=== PATIENT | male | born 1945 | race Caucasian/White ===

== ENCOUNTER 2017-01-17 11:35 | Observation (INO) | payer MEDICARE, OTHER ==
--- NOTE | ~2017-01-17 | CN ---
Consultation Report [facility] [address] [place]. [address] NAME: RENÉ OVALLES : 41 STATUS : ADM Isaías PAT#: [id number] AGE: 71 ADM/REG DATE : 01/17/17 MR#: [id number] REPORT SERV DATE: 01/18/17 DICTATED BY: ELEANOR MADDOX DATE: 01/18/17 REPORT STATUS : Draft TRANSCRIBED BY: MODL DATE: 01/18/17 GI CONSULTATION DATE OF CONSULTATION: 01/18/2017 REASON FOR CONSULTATION: Evaluation and management of melenic stools. HISTORY OF PRESENT ILLNESS: Mr. Ovalles is a pleasant 71-year-old male patient, who is known to Dr. Alvarez in the outpatient setting, who presented to [facility] on 01/17 with a chief complaint of black stools. He states this has been ongoing since 01/15/2017. He states that he has been taking Aleve regularly most recently for chronic osteoarthritis as well as back pain. He states that he has had some mild nausea over the last few days, but no emesis. He said this Tuesday, he started having black tarry stools one to two times per day. He has not seen any bright red blood per rectum. He has not had any vomiting. No chest pain, shortness of breath, syncope or near syncopal episodes. He had a CT scan done on admission that showed minimal air reflux into the esophagus, otherwise a negative exam. He had a hemoglobin on admission of 10.6, presently it is 9.8. BUN was slightly elevated at 35 with a creatinine of 1.21. His last EGD was done by Dr. Alvarez on 09/02/2013 secondary to a complaint of dyspepsia, globus sensation, as well as shortness of breath. He had findings on that exam of normal esophagus, gastritis with biopsies, a Chau fundoplication, duodenal erosions without bleeding. Prior to that, he had a colonoscopy on 05/22/2013. Findings on that exam were polyps in the cecum, anal papillae were hypertrophied that were biopsied, and internal hemorrhoids. I have discussed with the patient we will plan on pursuing upper endoscopy on 01/19/2017. Risks, benefits, alternatives, and complications were detailed with him to include, but not limited to risk of bleeding, perforation, infection, reaction to medications, as well as cardiac and pulmonary side effects. He is agreeable to proceed. PAST MEDICAL HISTORY: Positive for gastritis, duodenitis, colon polyps, osteoarthritis, chronic low back pain, coronary artery disease with history of CABG, hypertension, hyperlipidemia. PAST SURGICAL HISTORY: CABG and epidurals to his back. SOCIAL HISTORY: Past tobacco. Occasional alcohol. No illicit drugs. He is , is present at the bedside. FAMILY HISTORY: Noncontributory from a GI standpoint. ALLERGIES: NO KNOWN ALLERGIES. HOME MEDICATIONS: Aspirin, Coreg, vitamin B12, Theragran, Prilosec, Zocor, Nasacort. REVIEW OF SYSTEMS: Consultation Report [address] [place]. [address] NAME: RENÉ OVALLES : 41 STATUS : ADM Isaías PAT#: [id number] AGE: 71 ADM/REG DATE : 01/17/17 MR#: [id number] REPORT SERV DATE: 01/18/17 DICTATED BY: ELEANOR MADDOX DATE: 01/18/17 REPORT STATUS : Draft TRANSCRIBED BY: LULU DATE: 01/18/17 A 10-point review of systems has been obtained with pertinent positives being addressed in the history of present illness. PERTINENT LABORATORY DATA: Sodium is 144, potassium 3.9, BUN is 26, creatinine 1.16. White count 6.6, hemoglobin 9.8, hematocrit 28.1, platelet count 216. INR of 1.2. PHYSICAL EXAMINATION: VITAL SIGNS: Temperature is 97.9, pulse 55, respirations 18, and blood pressure 139/63. NEURO: Reveals an alert male, sitting up in bed with no obvious focal deficits. Awake, alert, and oriented x3. GENERAL: He is cooperative. He complains of lower back pain. HEAD, EARS, EYES, NOSE, AND THROAT: Anicteric. Pupils equal, round, reactive to light and accommodation. Normocephalic and atraumatic. NECK: No JVD. No palpable nodes. Supple. LUNGS: Diminished throughout with normal respiratory effort exhibited. Equal expansion. CARDIOVASCULAR SYSTEM: Regular rate and rhythm. S1 and S2. No murmurs, rubs, gallops, S3, or S4 appreciated. ABDOMEN: Soft and nondistended. No rebound. No guarding. No organomegaly elicited on exam. Active bowel sounds in all four quadrants. EXTREMITIES: No edema. Normal distal pulses. SKIN: Warm, dry, and intact. ASSESSMENT: 1. Melena since 01/15/2017. Differential diagnosis of peptic ulcer disease, gastritis, or esophagitis. 2. Acute on chronic anemia. 3. Positive NSAID use multiple times a day recently for lower back pain. 4. History of coronary artery disease with CABG. 5. Chronic back pain. PLAN: 1. N.P.O. after midnight. 2. PPI. 3. EGD on 01/[address] Mcneal. 4. Trend H and H and transfuse if needed. Other recommendations to follow endoscopy. ZACHERY/LULU Eleanor LAUREEN Meeks / [id number] Consultation Report [address] [address] NAME: RENÉ OVALLES : 41 STATUS : ADM Isaías PAT#: [id number] AGE: 71 ADM/REG DATE : 01/17/17 MR#: [id number] REPORT SERV DATE: 01/18/17 DICTATED BY: ELEANOR MADDOX DATE: 01/18/17 REPORT STATUS : Draft TRANSCRIBED BY: LULU DATE: 01/18/17 CC: MD Karmen Hodges MD
--- NOTE | ~2017-01-17 | EGD ---
EGD REPORT [facility] [address] [address] NAME: YFN OVALLES : 41 STATUS : ADM Isaías PAT#: [id number] AGE: 71 ADM/REG DATE : 01/17/17 MR#: [id number] REPORT SERV DATE: 01/19/17 DICTATED BY: RIKI ANTUNEZ DATE: 01/19/17 REPORT STATUS : Draft [facility]ANSCRIBED BY: [facility] DATE: 01/19/17 Endoscopy Center Patient Name: Yfn Ovalles Date of : 1945 Attending MD: RIKI ANTUNEZ MD Procedure Date No Time: 01/19/2017 Procedure: Upper GI endoscopy Indications: Melena Referring MD: JOSE FERNANDEZ MD Medicines: Monitored Anesthesia Care Complications: No immediate complications. Estimated blood loss: Minimal. Procedure: Pre-Anesthesia Assessment: - ASA Grade Assessment: III - A patient with severe systemic disease. After obtaining informed consent, the endoscope was passed under direct vision. Throughout the procedure, the patient's blood pressure, pulse, and oxygen saturations were monitored continuously. The GIF [id number] was introduced through the mouth, and advanced to the second part of duodenum. The upper GI endoscopy was accomplished without difficulty. The patient tolerated the procedure well. Findings: The examined esophagus was normal. Multiple localized, small non-bleeding erosions were found in the gastric antrum. There were no stigmata of recent bleeding. Biopsies were taken with a cold forceps for Helicobacter pylori testing. Estimated blood loss was minimal. One non-bleeding cratered duodenal ulcer with pigmented material was found in the first part of the duodenum. The lesion was 8 mm in largest dimension. Biopsies were taken with a cold forceps for histology. Estimated blood loss was minimal. The cardia and gastric fundus were normal on retroflexion. The exam was otherwise without abnormality. Impression: - Non-bleeding erosive gastropathy. Biopsied. - One duodenal ulcer. Biopsied. - The examination was otherwise normal. Recommendation: - [facility]. - Use Protonix (pantoprazole) 40 mg PO BID for 12 weeks. - Clear liquid diet today. - Check hemoglobin q 12 hours until stable. EGD REPORT [address] [address] NAME: YFN OVALLES : 41 STATUS : ADM Isaías PAT#: [id number] AGE: 71 ADM/REG DATE : 01/17/17 MR#: [id number] REPORT SERV DATE: 01/19/17 DICTATED BY: RIKI ANTUNEZ DATE: 01/19/17 REPORT STATUS : Draft TRANSCRIBED BY: [employer] DATE: 01/19/17 Procedure Code(s): --- Professional --- 08008, Esophagogastroduodenoscopy, flexible, transoral; with biopsy, single or multiple Diagnosis Code(s): --- Professional --- K31.9, Disease of stomach and duodenum, unspecified K26.9, Duodenal ulcer, unspecified as acute or chronic, without hemorrhage or perforation K92.1, Melena CPT copyright 2013 [employer]. All rights reserved. The codes documented in this report are preliminary and upon bank consultant review may be revised to meet current compliance requirements. Riki Antunez MD RIKI ANTUNEZ MD 01/19/2017 8:58 AM This report has been signed electronically. Number of Addenda: 0 Note Initiated On: 01/19/2017 8:15 AM Scope Withdrawal Time 0 hours 0 minutes 0 seconds [address] [address]
--- NOTE | ~2017-01-17 | HP ---
History And Physical [place] [id number] [facility] [place]. [address] NAME: RENÉ OVALLES : 41 STATUS : ADM Isaías PAT#: [id number] AGE: 71 ADM/REG DATE : 01/17/17 MR#: [id number] REPORT SERV DATE: 01/17/17 DICTATED BY: RENA ORTIZ DATE: 01/17/17 REPORT STATUS : Draft TRANSCRIBED BY: MODL DATE: 01/17/17 DATE OF ADMISSION: 01/17/2017 REASON FOR ADMISSION: Black tarry stools two times a day since Tuesday. Primary care doctor is unclear, sees Dr. Alvarez for GI needs, has also seen Dr. Webb for back problems apparently. Patient is hung in inverse direction to alleviate back pain. HPI: This 71-year-old male, known history of CAD with CABG, hypertension, hyperlipidemia, as well as osteoarthritis and chronic back pain, has never had any surgical interventions or epidurals is just hung from an inverted position by his legs by Dr. Webb. He has had a history of EGD and colonoscopy by Dr. Alvarez about three years ago. Unremarkable except for benign minimal polyps. The patient has been taking two Aleve possibly 400 mg a day in addition to aspirin every single day for his back pain, since Tuesday developed melena two times a day. No fevers. No chills. Positive nausea. No vomiting. Minimal diarrhea. No chest pain. No chest pressure. No shortness of breath. REVIEW OF SYSTEMS: Done, see HPI, otherwise negative. PAST MEDICAL HISTORY: See above. PAST SURGICAL HISTORY: See above. ALLERGIES: NO KNOWN DRUG ALLERGIES. SOCIAL: Used to smoke maybe 20-pack years. Social alcohol use, nothing excessive. No drug use. No current smoking. HOME MEDICATIONS: See JAN. Continue what is relevant. FAMILY HISTORY: Hypertension at least in one parent. OBJECTIVE: VITAL SIGNS: Bradycardic in the mid 50s on tele, otherwise was 190/81, 62 pulse initially, 14 respirations, 100% room air. Afebrile. GENERAL: No acute distress. HEENT: PERRLA. No scleral icterus. CARDIOVASCULAR: Bradycardic, but no murmur auscultated. RESPIRATORY: Clear to auscultation bilaterally. No wheezes or crackles. ABDOMEN: Nontender, nondistended. Positive bowel sounds. EXTREMITIES: No edema. No ecchymosis. NEURO: GCS 15. A and O x4. PSYCH: Normal affect and mood. History And Physical [address] [address] NAME: RENÉ OVALLES : 41 STATUS : ADM Isaías PAT#: [id number] AGE: 71 ADM/REG DATE : 01/17/17 MR#: [id number] REPORT SERV DATE: 01/17/17 DICTATED BY: RENA ORTIZ DATE: 01/17/17 REPORT STATUS : Draft TRANSCRIBED BY: MODL DATE: 01/17/17 LABORATORY DATA: White count 7.1; hemoglobin 10.6, unclear baseline; 235,000 platelets. INR 1.2, potassium 4, bicarb 29, creatinine 1.21, BUN 35, sodium 145, sugar 91. EKG; I will go ahead and do one given his bradycardia. ASSESSMENT AND PLAN: 1. Melena since Tuesday two times a day. 2. NSAID abuse. 3. History of coronary artery disease with CABG, sees Dr. Ruth for his cardiology needs. 4. Hypertension. 5. Hyperlipidemia. 6. Chronic back pain. PLAN: We will go ahead and admit this patient under observation. Ask Dr. Alvarez of GI to evaluate the patient. Educated the patient on NSAID abuse risk. PPI IV b.i.d. GI cocktail. Dyspepsia. EKG regarding bradycardia. Could consider possible reduction in carvedilol and increase of an ARB for his antihypertensive. He is given CAD equivalents. We will also go ahead and consider patient possibly for Lidoderm patch as an outpatient. Would recommend that, but defer to his attending physician and Tylenol use. See rest of my orders. All questions were answered. It took well over 60 minutes to do. Would like to note that the patient has abnormal creatinine, do not know his baseline. Get a CT abdomen and pelvis, FENa, and place on D5 LR. WST/MODL Rena Ortiz DO / [id number] CC: MD Karmen Hodges MD
--- NOTE | ~2017-01-17 | DS ---
Discharge Summary [address] [address] [place]. [address] NAME: RENÉ OVALLES : 41 STATUS : DIS Isaías PAT#: [id number] AGE: 71 ADM/REG DATE : 01/17/17 MR#: [id number] REPORT SERV DATE: 01/20/17 DICTATED BY: JR. AGUILERA WILLIAM JOHN DATE: 01/19/17 REPORT STATUS : Draft TRANSCRIBED BY: MODL DATE: 01/19/17 ADMISSION DATE: 01/17/2017 DISCHARGE DATE: 01/19/2017 DISCHARGE DIAGNOSES: 1. Acute blood loss anemia. 2. Duodenal ulcer with pigmented base. 3. Gastrointestinal hemorrhage. 4. History of coronary artery disease, with right prior bypass grafting. 5. Hypertension. 6. Hyperlipidemia. 7. Chronic back pain. 8. Acute kidney injury. OPERATIONS, PROCEDURES, AND TREATMENTS: Include: 1. CT of the abdomen and pelvis done 01/17/2017, which showed cardiomegaly with some air reflux into the esophagus. No evidence of obstruction at the GI or system. The prostate was moderate to markedly enlarged. There was benign kidney stone on the right and left renal cysts. 2. Upper endoscopy done 01/19/[address] Riki Mcneal which showed an erosive nonbleeding gastropathy which was biopsied. There was one duodenal ulcer with a pigmented base. It was 8 mm in largest dimension. Recommendation was Protonix b.i.d. for at least 12 weeks. DISCHARGE MEDICATIONS: Include: 1. Coreg 3.125 mg orally twice a day. 2. Cyanocobalamin 1000 mcg orally daily. 3. Multivitamin one tablet orally daily. 4. Simvastatin 40 mg orally daily. 5. Aspirin 81 mg daily is held for at least one to two weeks. 6. Nasacort nasal spray daily. 7. Protonix 40 mg orally twice a day for at least 12 weeks. HOSPITAL COURSE: The patient was a 71-year-old male with chronic coronary disease, hypertension, hyperlipidemia, and chronic back pain, who presented to the emergency room with melena x2 on the day of presentation. The patient has had worsening of his back pain, has been taking Aleve and aspirin. He denied any chest pain, shortness of breath, or dizziness at presentation. In the emergency room, his heart rate was in the mid 50s, blood pressure was 190/81, respiratory rate of 14, temperature was normal. Exam was unremarkable. Initial hemoglobin was 10.6, platelets and coags were unremarkable. The patient was admitted to the Clinical Decision Unit for monitoring. His hemoglobin and hematocrit did not drop significantly. His discharge hemoglobin will be 9.9 without any transfusions. Obviously, his NSAIDs an aspirin were withheld, and the patient was seen in consultation by Dr. Riki Mcneal of Gastroenterology, underwent an upper endoscopy on 01/19/2017 with finding of erosive gastropathy without bleeding and a single 8 mm duodenal Discharge Summary [address] [address] NAME: RENÉ OVALLES : 41 STATUS : DIS Isaías PAT#: [id number] AGE: 71 ADM/REG DATE : 01/17/17 MR#: [id number] REPORT SERV DATE: 01/20/17 DICTATED BY: JR. AGUILERA WILLIAM JOHN DATE: 01/19/17 REPORT STATUS : Draft TRANSCRIBED BY: MODL DATE: 01/19/17 ulcer with a pigmented base. The patient strongly desired discharge home. We discussed the intermediate rebleed risk with a pigmented base on this ulcer. The patient is an intelligent reliable individual who agrees to return if any signs of bleeding such as hematemesis, melena, or bright red blood per rectum. Also agrees to return with any chest pain, shortness of breath, or dizziness, which is unexplained. We will therefore feed him a full liquid lunch followed by regular snack, and if this is tolerated, the patient will be discharged home this afternoon. He has been cautioned to stay away from Aleve NSAIDs, etc. The patient will follow with his primary care physician in one to two weeks. For discharge exam and laboratory, please see daily progress note. DISCHARGE DIET: Regular. ACTIVITY: As tolerated. This discharge took less than 30 minutes. For discharge exam and laboratory, please see daily progress note. WJF/MODL Riki Aguilera Jr, MD / [id number] CC: Riki Aguilera Jr, MD Elizabeth Close, MD
[~2017-01-17 11:35] MED LIST: DIOV80 PO; FISH-EPA1000 MG PO; FLAXSEED OIL1000 MG PO; HALF81 PO; LOP25 PO; LORTAB 5 PO; MULTIVITAMI1 PO; NATURL FIBER68 % PO; ZOCOR40 PO
[2017-01-17] MEDS ORDERED: ZOCOR40 PO (12:24)
[2017-01-17] MEDS ORDERED: HALF81 PO (12:24)
[2017-01-17] MEDS ORDERED: THERGRANM PO (12:25)
[2017-01-17] MEDS ORDERED: COREG3 PO (12:25)
[2017-01-17] MEDS ORDERED: PRILOSEC40 MG PO (12:25)
[2017-01-17] MEDS ORDERED: CYANO1000T PO (12:25)
[2017-01-17] MEDS ORDERED: NASACORTAQ NAS (12:26)
[2017-01-17 12:33] LABS: BASOPHILS 1.1 %; BASOPHILS ABSOLUTE 0.08 10/3/uL (0.0-0.16); EOSINOPHILS 8.3 %; EOSINOPHILS ABSOLUTE 0.59 10/3/uL (0.0-0.53); ER CBC TAT 0 Hrs 05 Mins; HEMATOCRIT 30.8 % (40.0-51.0); HEMOGLOBIN 10.6 g/dL (13.6-17.8); IMMATURE GRANULOCYTES 0.1 %; IMMATURE GRANULOCYTES ABSOLUTE 0.01 10/3/uL (0.0-0.11); LYMPHOCYTES 24.6 %; LYMPHOCYTES ABSOLUTE 1.75 10/3/uL (0.67-4.30); MANUAL DIFF NO %; MEAN CORPUS HGB CONC 34.4 g/dL (32.0-36.0); MEAN CORPUSCULAR HEMOGLOB 33.3 pg (26.0-34.0); MEAN CORPUSCULAR VOLUME 96.9 fL (80-100); MEAN PLATELET VOLUME 9.1 fL (9.2-13.0); MONOCYTES 6.5 %; MONOCYTES ABSOLUTE 0.46 10/3/uL (0.21-1.20); NEUTROPHILS 59.4 %; NEUTROPHILS ABSOLUTE 4.22 10/3/uL (2.02-8.40); PLATELET COUNT 235 10/3/uL (150-400); RED CELL COUNT 3.18 10/6/uL (4.7-6.1); WHITE BLOOD CELLS 7.1 10/3/uL (4.5-10.5)
[2017-01-17 12:41] LABS: INTERNATIONAL NORMAL RATI 1.2 UNITS (-); PARTIAL THROMBO TIME 24.9 SEC (22.5-37.2); PROTIME (NOT ORD) 14.6 SEC (12.0-14.5)
[2017-01-17 12:47] LABS: ALBUMIN 3.4 G/DL (3.5-5.0); ALKALINE PHOSPHATASE 57 U/L (45-117); BUN (BLOOD UREA NITROGEN) 35 MG/DL (6-23); CALCIUM, SERUM 8.2 MG/DL (8.5-10.4); CHLORIDE, SERUM 109 MMOL/L (96-112); CO2 (CARBON DIOXIDE) 29 MMOL/L (24-34); CREATININE 1.21 MG/DL (0.70-1.30); GFR AFRICAN AMERICAN 68 ML/MIN (>=60); GFR NON AFRICAN AMERICAN 59 ML/MIN (>=60); GLOBULIN 3.4 G/DL (2.5-4.1); GLUCOSE, SERUM 91 MG/DL (60-99); SGOT(AST) 15 U/L (5-40); SGPT(ALT) 24 U/L (5-65); SODIUM, SERUM 145 MMOL/L (135-148); TOTAL BILIRUBIN 0.2 MG/DL (0-1.2); TOTAL PROTEIN 6.8 G/DL (6.0-8.5)
[2017-01-18 06:00] LABS: BASOPHILS 0.8 %; BASOPHILS ABSOLUTE 0.05 10/3/uL (0.0-0.16); EOSINOPHILS 10.3 %; EOSINOPHILS ABSOLUTE 0.68 10/3/uL (0.0-0.53); HEMATOCRIT 28.1 % (40.0-51.0); HEMOGLOBIN 9.8 g/dL (13.6-17.8); IMMATURE GRANULOCYTES 0.3 %; IMMATURE GRANULOCYTES ABSOLUTE 0.02 10/3/uL (0.0-0.11); LYMPHOCYTES 28.9 %; LYMPHOCYTES ABSOLUTE 1.91 10/3/uL (0.67-4.30); MEAN CORPUS HGB CONC 34.9 g/dL (32.0-36.0); MEAN CORPUSCULAR HEMOGLOB 33.7 pg (26.0-34.0); MEAN CORPUSCULAR VOLUME 96.6 fL (80-100); MEAN PLATELET VOLUME 9.2 fL (9.2-13.0); MONOCYTES 9.5 %; MONOCYTES ABSOLUTE 0.63 10/3/uL (0.21-1.20); NEUTROPHILS 50.2 %; NEUTROPHILS ABSOLUTE 3.31 10/3/uL (2.02-8.40); PLATELET COUNT 216 10/3/uL (150-400); RED CELL COUNT 2.91 10/6/uL (4.7-6.1); RETICULOCYTE COUNT 1.7 % (0.5-2.5); RETICULOCYTE COUNT ABSOLUTE 49.8 10/3/uL (20.2-119.8); WHITE BLOOD CELLS 6.6 10/3/uL (4.5-10.5)
[2017-01-18 06:01] LABS: MANUAL DIFF NO %
[2017-01-18 06:26] LABS: A/G RATIO 0.9 (0.7-1.9); ALBUMIN 2.9 G/DL (3.5-5.0); ALKALINE PHOSPHATASE 46 U/L (45-117); CALCIUM, SERUM 8.2 MG/DL (8.5-10.4); CHLORIDE, SERUM 109 MMOL/L (96-112); CO2 (CARBON DIOXIDE) 26 MMOL/L (24-34); CREATININE 1.16 MG/DL (0.70-1.30); GFR AFRICAN AMERICAN 72 ML/MIN (>=60); GFR NON AFRICAN AMERICAN 62 ML/MIN (>=60); GLOBULIN 3.2 G/DL (2.5-4.1); GLUCOSE, SERUM 86 MG/DL (60-99); PHOSPHORUS, SERUM 2.7 MG/DL (2.5-4.5); POTASSIUM, SERUM 3.9 MMOL/L (3.5-5.3); SGOT(AST) 12 U/L (5-40); SGPT(ALT) 21 U/L (5-65); SODIUM, SERUM 144 MMOL/L (135-148); TOTAL BILIRUBIN 0.3 MG/DL (0-1.2); TOTAL PROTEIN 6.1 G/DL (6.0-8.5); TROPONIN I <0.02 NG/ML (<0.05)
[2017-01-18 06:27] LABS: BUN (BLOOD UREA NITROGEN) 26 MG/DL (6-23)
[2017-01-18 07:01] LABS: PROCALCITONIN <0.05 ng/mL (<0.5)
[2017-01-18 15:07] LABS: HEMATOCRIT 29.1 % (40.0-51.0); HEMOGLOBIN 9.7 g/dL (13.6-17.8)
[2017-01-19 00:37] LABS: HEMATOCRIT 28.5 % (40.0-51.0); HEMOGLOBIN 9.8 g/dL (13.6-17.8)
[2017-01-19 05:27] LABS: BASOPHILS 0.6 %; BASOPHILS ABSOLUTE 0.04 10/3/uL (0.0-0.16); EOSINOPHILS 10.6 %; EOSINOPHILS ABSOLUTE 0.74 10/3/uL (0.0-0.53); HEMATOCRIT 29.2 % (40.0-51.0); HEMOGLOBIN 9.9 g/dL (13.6-17.8); LYMPHOCYTES 28.3 %; LYMPHOCYTES ABSOLUTE 1.98 10/3/uL (0.67-4.30); MEAN CORPUS HGB CONC 33.9 g/dL (32.0-36.0); MEAN CORPUSCULAR HEMOGLOB 32.6 pg (26.0-34.0); MEAN CORPUSCULAR VOLUME 96.1 fL (80-100); MEAN PLATELET VOLUME 8.9 fL (9.2-13.0); MONOCYTES 8.7 %; MONOCYTES ABSOLUTE 0.61 10/3/uL (0.21-1.20); NEUTROPHILS 51.8 %; NEUTROPHILS ABSOLUTE 3.63 10/3/uL (2.02-8.40); PLATELET COUNT 227 10/3/uL (150-400); RBC DISTRIBUTION WIDTH 12.8 % (12.0-16.0); RED CELL COUNT 3.04 10/6/uL (4.7-6.1)
[2017-01-19 05:29] LABS: MANUAL DIFF NO %
[2017-01-19 05:45] LABS: CALCIUM, SERUM 8.4 MG/DL (8.5-10.4); CHLORIDE, SERUM 111 MMOL/L (96-112); CO2 (CARBON DIOXIDE) 25 MMOL/L (24-34); GFR AFRICAN AMERICAN 77 ML/MIN (>=60); GFR NON AFRICAN AMERICAN 66 ML/MIN (>=60); GLUCOSE, SERUM 89 MG/DL (60-99); POTASSIUM, SERUM 3.7 MMOL/L (3.5-5.3); SODIUM, SERUM 145 MMOL/L (135-148)
[2017-01-19 05:47] LABS: BUN (BLOOD UREA NITROGEN) 22 MG/DL (6-23)
[2017-01-19 09:45] LABS: HEMATOCRIT 29.4 % (40.0-51.0); HEMOGLOBIN 9.9 g/dL (13.6-17.8)
[2017-01-19 09:53] LABS: INTERNATIONAL NORMAL RATI 1.2 UNITS (-); PARTIAL THROMBO TIME 24.8 SEC (22.5-37.2); PROTIME (NOT ORD) 15.1 SEC (12.0-14.5)
[2017-01-19 09:57] LABS: BUN (BLOOD UREA NITROGEN) 23 MG/DL (6-23); CALCIUM, SERUM 8.2 MG/DL (8.5-10.4); CHLORIDE, SERUM 111 MMOL/L (96-112); CO2 (CARBON DIOXIDE) 25 MMOL/L (24-34); CREATININE 1.15 MG/DL (0.70-1.30); GFR AFRICAN AMERICAN 73 ML/MIN (>=60); GFR NON AFRICAN AMERICAN 63 ML/MIN (>=60); GLUCOSE, SERUM 84 MG/DL (60-99); POTASSIUM, SERUM 3.7 MMOL/L (3.5-5.3); SODIUM, SERUM 145 MMOL/L (135-148)
[2017-01-19] MEDS ORDERED: PROTONIX PO (14:59)
== END 2017-01-19 15:20 | disposition home or self-care (01) ==
LOC: ER 11:35 → 4SO 13:13 → CDU1 14:27 → CDU2 15:27
PROVIDERS: Internal Medicine; Internal Medicine Gastroenterology; Nurse Practitioner; Nurse Practitioner Family
PROC: 0DB68ZX Excision of Stomach, Via Natural or Artificial Opening Endoscopic, Diagnostic (ICD-10-PCS; 2017-01-19)
PROC: 0DB98ZX Excision of Duodenum, Via Natural or Artificial Opening Endoscopic, Diagnostic (ICD-10-PCS; principal; 2017-01-19 07:30)
DX: K29.80 Duodenitis without bleeding (principal); K31.9 Disease of stomach and duodenum, unspecified; K26.9 Duodenal ulcer, unspecified as acute or chronic, without hemorrhage or perforation; I10 Essential (primary) hypertension; E78.5 Hyperlipidemia, unspecified; I25.10 Atherosclerotic heart disease of native coronary artery without angina pectoris; D62 Acute posthemorrhagic anemia; N17.9 Acute kidney failure, unspecified; M19.90 Unspecified osteoarthritis, unspecified site; Z98.890 Other specified postprocedural states; F17.210 Nicotine dependence, cigarettes, uncomplicated; Z82.49 Family history of ischemic heart disease and other diseases of the circulatory system; Z95.5 Presence of coronary angioplasty implant and graft; Z96.1 Presence of intraocular lens; Z79.82 Long term (current) use of aspirin; Z79.01 Long term (current) use of anticoagulants; Z79.899 Other long term (current) drug therapy
CPT/HCPCS: 36415; 74176; 80048; 80053; 82150; 82570; 82962; 83036; 83605; 83690; 83735; 83935; 84100; 84145; 84300; 84443; 84484; 85014; 85018; 85025; 85045; 85610; 85730; 86850; 86900; 86901; 88305; 93005; 96365; 96366; 96376; 99285; A9270-GY; C9113; G0378